=== PATIENT | female | born 1990 | race Caucasian/White ===

== ENCOUNTER 2017-09-29 14:25 | Inpatient (IN) | payer OTHER ==
[2017-09-29 15:06] VITALS: BMI 33.4
[2017-09-29] MEDS: Lactated Ringer's 1,000 ML IV SCH ×2 (17:43→18:57)
[2017-09-29] MEDS ORDERED: Promethazine HCl 25 MG/ML VIAL IM PRN ×2 (17:49→19:36)
[2017-09-29] MEDS ORDERED: Zolpidem Tartrate 5 MG TAB PO PRN (17:49)
[2017-09-29] MEDS ORDERED: Acetaminophen 500 MG TAB PO PRN (17:49)
[2017-09-29] MEDS ORDERED: Ondansetron HCl/PF 4 MG/2 ML Vial IVP PRN ×2 (17:49→19:36)
[2017-09-29] MEDS ORDERED: Lidocaine 1% (PF) 30 ML VIAL SC PRN ×2 (17:54→17:56)
[2017-09-29] MEDS ORDERED: LR / Pitocin 40 units/1000 ml 1,000 ML IV PRN ×2 (17:54→17:56)
[2017-09-29] MEDS ORDERED: Penicillin G Potassium 5 MILL.UNITS VIAL ONE (17:55)
[2017-09-29] MEDS ORDERED: Penicillin G Potassium 5 MILL.UNITS in Sodium Chloride 0.9% 100 ML IVPB SCH (18:00)
[2017-09-29 18:14] LABS: Hematocrit 37.4 % (36.0-47.0); Mean Platelet Volume 7.4 fL (7.4-10.4); Red Blood Cell (RBC) Count 3.96 mill/uL (4.20-5.40); White Blood Cell (WBC) Count 14.7 thou/uL (4.8-10.8)
[2017-09-29] MEDS ORDERED: Fentanyl 4 mcg/Marc 0.1% Cadd 100 ML ONE (18:20)
[2017-09-29] MEDS ORDERED: Naloxone HCl 0.4 mg/ml Vial IVP PRN ×2 (19:36)
[2017-09-29] MEDS ORDERED: ePHEDrine/0.9% NaCl/PF SYRINGE 50 mg/10 ml SLOW IVP PRN (19:36)
[2017-09-29] MEDS ORDERED: Acetaminophen 325 MG TAB PO PRN (19:36)
[2017-09-29] MEDS ORDERED: Lactated Ringer's 500 ML IV PRN (19:36)
[2017-09-29] MEDS ORDERED: Eucerin (Mineral Oil/Petrolatum,White) 30 gm Jar TOP PRN (19:36)
[2017-09-29] MEDS ORDERED: diphenhydrAMINE 50 MG/ML VIAL IVP PRN (19:36)
[2017-09-29] MEDS ORDERED: Communication Order-Pharmacy FS SCH (19:45)
[2017-09-29] MEDS: Penicillin G 2.5 MILL.units 2.5 MILL.UNITS in Premix Bag 1 BAG IVPB SCH (21:50)
[2017-09-29] MEDS ORDERED: LR 500 ML/Oxytocin 10 units 500 ML ONE (23:41)
[2017-09-30] MEDS ORDERED: Betamet Acet/Betamet Na Ph 30 MG/5 ML VIAL IM SCH (01:00)
[2017-09-30] MEDS: Penicillin G 2.5 MILL.units 2.5 MILL.UNITS in Premix Bag 1 BAG IVPB SCH ×5 (02:03→18:12)
[2017-09-30] MEDS: Fentanyl 4mcg/Marcaine 0.1% Cassette 100 ML EPIDURAL SCH ×2 (02:27→09:30)
[2017-09-30] MEDS ORDERED: Bicitra 30 ML UDCUP ONE ×3 (02:44→11:22)
[2017-09-30] MEDS: Lactated Ringer's 1,000 ML IV SCH (05:12)
[2017-09-30] MEDS ORDERED: LR 500 ML/Oxytocin 10 units 500 ML IVPB SCH (07:15)
[2017-09-30] MEDS ORDERED: Lidocaine 2% PF 5 ML VIAL ONE (11:11)
[2017-09-30] MEDS ORDERED: Bupivacaine/Epinephrine 0.25% 30 ML VIAL ONE (11:11)
[2017-09-30] MEDS: Dextrose 5%-Lactated Ringers 1,000 ML IV SCH ×2 (12:41→14:30)
[2017-09-30] MEDS ORDERED: Misoprostol 200 MCG TAB ONE ×2 (14:02→15:21)
[2017-09-30] MEDS ORDERED: Bisacodyl 10 MG SUPP PR PRN (14:05)
[2017-09-30] MEDS ORDERED: Ondansetron HCl/PF 4 MG/2 ML Vial IVP PRN (14:05)
[2017-09-30] MEDS ORDERED: diphenhydrAMINE 25 MG CAP PO PRN (14:05)
[2017-09-30] MEDS ORDERED: Adacel (T-DAP) 0.5 ML VIAL IM ONE (14:05)
[2017-09-30] MEDS ORDERED: Milk Of Magnesia 30 ML UDCUP PO PRN (14:05)
[2017-09-30] MEDS ORDERED: Lanolin Ointment 7 GM TUBE TOP PRN (14:05)
[2017-09-30] MEDS ORDERED: Benzocaine/Menthol 20-0.5% 60 ML CAN TOP PRN (14:05)
[2017-09-30] MEDS ORDERED: Preparation H Ointment 28 GM TUBE PR PRN (14:05)
[2017-09-30] MEDS ORDERED: LR / Pitocin 40 units/1000 ml 1,000 ML IV SCH (14:15)
[2017-09-30] MEDS ORDERED: Misoprostol 200 MCG TAB VAG SCH (14:15)
[2017-09-30] MEDS: Ibuprofen 800 MG TAB PO SCH ×2 (14:37→22:07)
[2017-09-30] MEDS: Ferrous Sulfate 325 MG TAB PO SCH (17:54)
[2017-09-30] MEDS: Docusate Calcium (SURFAK) 240 MG CAP PO SCH (22:07)
[2017-10-01] MEDS: Ibuprofen 800 MG TAB PO SCH ×3 (05:34→21:42)
[2017-10-01 06:07] LABS: Hematocrit 23.3 % (36.0-47.0); Mean Platelet Volume 6.8 fL (7.4-10.4); Red Blood Cell (RBC) Count 2.45 mill/uL (4.20-5.40); White Blood Cell (WBC) Count 15.8 thou/uL (4.8-10.8)
[2017-10-01] MEDS: Docusate Calcium (SURFAK) 240 MG CAP PO SCH ×2 (08:33→21:42)
[2017-10-01] MEDS: Prenatal Vitamin 1 TAB PO SCH (08:34)
[2017-10-01] MEDS: Ferrous Sulfate 325 MG TAB PO SCH ×2 (08:41→16:44)
[2017-10-01] MEDS ORDERED: Acetaminophen/Codeine 30-300mg Tablet PO PRN ×2 (14:05)
[2017-10-01] MEDS ORDERED: Zolpidem Tartrate 5 MG TAB PO PRN (14:09)
[2017-10-02] MEDS: Ibuprofen 800 MG TAB PO SCH ×2 (04:30→14:38)
[2017-10-02 08:13] VITALS: BP 123/76; TEMP 98.1
[2017-10-02] MEDS: Prenatal Vitamin 1 TAB PO SCH (09:43)
[2017-10-02] MEDS: Ferrous Sulfate 325 MG TAB PO SCH ×2 (09:43→17:25)
[2017-10-02] MEDS: Docusate Calcium (SURFAK) 240 MG CAP PO SCH (09:43)
== END 2017-10-02 18:00 | disposition home or self-care (01) | DRG 774 ==
LOC: L&D/OP 14:25 → L&D 19:11 → 3SW 09-30 16:33
PROVIDERS: ADMIT Obstetrics & Gynecology; ATTEND Obstetrics & Gynecology
PROC: 10E0XZZ Delivery of Products of Conception, External Approach (ICD-10-PCS; principal; 2017-09-30)
PROC: 0UQKXZZ Repair Hymen, External Approach (ICD-10-PCS; 2017-09-30)
PROC: 10907ZC Drainage of Amniotic Fluid, Therapeutic from Products of Conception, Via Natural or Artificial Opening (ICD-10-PCS; 2017-09-30)
DX: O67.9 Intrapartum hemorrhage, unspecified (principal); O60.14X0 Preterm labor third trimester with preterm delivery third trimester, not applicable or unspecified; Z37.0 Single live birth; O99.824 Streptococcus B carrier state complicating childbirth; Z3A.36 36 weeks gestation of pregnancy; O70.0 First degree perineal laceration during delivery
CPT/HCPCS: 36415; 85014; 85018; 85027; 86780; 87340; 90715; J0702; J2001; J2540; J7120